=== PATIENT | male | born 1975 | race African-American/Black ===

== ENCOUNTER 2020-01-11 22:53 | Emergency (ER) | payer BC, SELFPAY ==
--- NOTE | 2020-01-12 06:55 | CT ---
NONCONTRAST CT ABDOMEN AND PELVIS: Date: 01/11/2020 HISTORY: Right lower quadrant abdominal pain. COMPARISON: None. FINDINGS: There is an approximately 3.0 mm nonobstructing calculus in the inferior pole of right kidney. No lef t renal calculus is seen. No ureteral calculi are visualized bilaterally, and there is no evidence of hydronephrosis. Visualized lung bases are clear. Lack of intravenous contrast limits sensitivity for evaluation of the parenchymal organs. However, th e liver, spleen, pancreas, bilateral adrenal glands, and left kidney demonstrate a grossly normal non enhanced CT appearance. Urinary bladder is incompletely distended, but otherwise has a normal nonenhanced CT appearance. The appendix is visualized and normal in caliber. Loops of small bowel are normal in caliber. Small, fat-containing umbilical hernia is present. No free fluid, fluid collection, or lymphadenopathy seen in the abdomen or pelvis on this nonenhanced CT exam. No suspicious lytic or sclerotic osseous lesions are identified. IMPRESSION: 1. Nonobstructing right renal calculus. No ureteral calculi are seen bilaterally and there is no hyd ronephrosis. 2. No CT evidence of appendicitis. 3. Small to moderate amount of retained fecal material in the ascending colon. 4. Small, fat-containing umbilical hernia. POS: OFF
== END 2020-01-12 00:23 | disposition left against medical advice (07) ==
LOC: MADERS 22:53
DX: R10.31 Right lower quadrant pain (principal); I10 Essential (primary) hypertension; J45.909 Unspecified asthma, uncomplicated; F17.210 Nicotine dependence, cigarettes, uncomplicated
CPT/HCPCS: 74176

== ENCOUNTER 2021-06-25 11:48 | Emergency (ER) | payer BC | END 2021-06-25 13:15 | disposition left against medical advice (07) | LOC: MADERS 11:48 | DX: Z53.21 Procedure and treatment not carried out due to patient leaving prior to being seen by health care provider (principal) ==